=== PATIENT | male | born 2000 | race Two or more races ===

== ENCOUNTER 2020-11-23 22:59 | Emergency (ER) | payer MEDICAID, OTHER ==
[~2020-11-23] VITALS: Ht 170.2 cm; Wt 75.3 kg
[2020-11-23 23:53] LABS: Basophils # (auto) 0 10 ^3/uL (0-0.2); Eosinophils # (auto) 0 10 ^3/uL (0-0.8); Lymphocytes # (auto) 0.7 10 ^3/uL (0.4-5.4); Mean Corpuscular Hemoglobin 18.8 pg (28.0-32.0)
[2020-11-23 23:55] LABS: Basophils % (auto) 0.3 % (0.0-2.0); Eosinophils % (auto) 0.2 % (0.0-7.0); Hematocrit 43.3 % (41.0-53.0); Hemoglobin 14.1 g/dL (13.5-17.5); Lymphocytes % (auto) 5.8 % (10.0-50.0); Mean Corpuscular Hgb Conc. 32.6 g/dL (32.0-36.0); Mean Corpuscular Volume 57.7 fL (80.0-100.0); Monocytes # (auto) 0.8 10 ^3/uL (0-1.3); Monocytes % (auto) 6.1 % (0.0-12.0); Neutrophils # (auto) 10.9 10 ^3/uL (1.6-8.6); Neutrophils % (auto) 87.6 % (37.0-80.0); Nucleated Red Blood Cells % 0.4 %; Platelet Count (auto) 275 10^3/uL (140-450); Red Blood Cells 7.51 10^6/uL (4.5-5.90); Red Cell Distribution Width 16.6 % (11.8-14.3); White Blood Cell 12.5 10^3/uL (4.4-10.8)
[2020-11-24 00:14] LABS: Albumin 4.5 g/dL (3.4-5.0); Magnesium 1.7 mg/dL (1.6-2.6); Potassium 4.7 mmol/L (3.5-5.1)
[2020-11-24 00:16] LABS: Lactic Acid w/Reflex 2.6 mmol/L (0.4-2.0)
[2020-11-24 00:17] LABS: BUN/Creatinine Ratio 15.7; Bilirubin, Total 1.1 mg/dL (0.2-1.0)
[2020-11-24] MEDS: ONDANSETRON HCL 4 MG/2 ML VIAL ONE (00:18)
[2020-11-24] MEDS: ONDANSETRON HCL 4 MG/2 ML VIAL IV ONE (00:18)
[2020-11-24] MEDS: DICYCLOMINE HCL (10MG/ML) 2 ML AMPULE IM ONE (00:18)
[2020-11-24] MEDS: LACTATED RINGER'S 1,000 ML IV ONE (00:19)
[2020-11-24] MEDS: FAMOTIDINE (10MG/ML) 2ML VL IV ONE (00:19)
[2020-11-24] MEDS: IOHEXOL 350 MG/ML 100ML IJ ONE (00:24)
[2020-11-24 00:28] VITALS: BP 102/63
[2020-11-24] MEDS: METOCLOPRAMIDE HCL 5MG/ml INJ 2ml VIAL IV ONE (03:30)
== END 2020-11-24 02:52 | disposition home or self-care (01) ==
LOC: ER 22:59
DX: K52.9 Noninfective gastroenteritis and colitis, unspecified (principal); R11.2 Nausea with vomiting, unspecified
CPT/HCPCS: 36415; 74177; 80053; 83605; 83690; 83735; 85025; 96361; 96372; 96374; 96375; 99285; J0500; J2405; J3490; J7030; Q9967

== ENCOUNTER 2023-04-27 23:17 | Emergency (ER) | payer MEDICAID ==
[~2023-04-27] VITALS: Ht 170.2 cm; Wt 70.0 kg
[2023-04-27 23:48] LABS: Basophils # (auto) 0 10 ^3/uL (0-0.2); Basophils % (auto) 0.4 % (0.0-2.0); Eosinophils # (auto) 0.2 10 ^3/uL (0-0.8); Hemoglobin 12.8 g/dL (13.5-17.5); Monocytes # (auto) 0.7 10 ^3/uL (0-1.3); Nucleated Red Blood Cells % 0.1 %
[2023-04-27 23:49] LABS: Eosinophils % (auto) 2.1 % (0.0-7.0); Hematocrit 39.3 % (41.0-53.0); Lymphocytes # (auto) 2.2 10 ^3/uL (0.4-5.4); Lymphocytes % (auto) 21.3 % (10.0-50.0); Mean Corpuscular Hemoglobin 18.8 pg (28.0-32.0); Mean Corpuscular Hgb Conc. 32.6 g/dL (32.0-36.0); Mean Corpuscular Volume 57.6 fL (80.0-100.0); Monocytes % (auto) 7.2 % (0.0-12.0); Neutrophils # (auto) 7.1 10 ^3/uL (1.6-8.6); Red Blood Cells 6.83 10^6/uL (4.5-5.90); Red Cell Distribution Width 17.2 % (11.8-14.3); White Blood Cell 10.3 10^3/uL (4.4-10.8)
[2023-04-27 23:52] LABS: Albumin 4.5 g/dL (3.4-5.0); Calcium 9.8 mg/dL (8.5-10.1); Magnesium 2.3 mg/dL (1.6-2.6); Potassium 3.4 mmol/L (3.5-5.1)
[2023-04-27 23:57] LABS: Bilirubin, Total 0.5 mg/dL (0.2-1.0); Total Protein 7.3 g/dL (6.4-8.2)
[2023-04-28 00:03] LABS: INR 1.07 (0.9-1.15); Partial Thromboplastin Time 29.9 SEC (24.5-34.5)
[2023-04-28 02:56] VITALS: BP 120/74
== END 2023-04-28 03:00 | disposition home or self-care (01) ==
LOC: ER 23:17
DX: R00.2 Palpitations (principal); R07.9 Chest pain, unspecified; Z79.899 Other long term (current) drug therapy
CPT/HCPCS: 36415; 71045; 80053; 82550; 83735; 84484; 85025; 85610; 85730; 93005

== ENCOUNTER 2023-08-10 01:57 | Inpatient (IN) | payer MEDICAID ==
[~2023-08-10] VITALS: Ht 170.2 cm; Wt 69.0 kg
[2023-08-10 02:28] LABS: Basophils # (auto) 0 10 ^3/uL (0-0.2); Basophils % (auto) 0.1 % (0.0-2.0); Eosinophils # (auto) 0.2 10 ^3/uL (0-0.8); Eosinophils % (auto) 1.3 % (0.0-7.0); Hematocrit 43.8 % (41.0-53.0); Hemoglobin 14.1 g/dL (13.5-17.5); Lymphocytes # (auto) 2.1 10 ^3/uL (0.4-5.4); Mean Corpuscular Hemoglobin 18.6 pg (28.0-32.0); Mean Corpuscular Hgb Conc. 32.2 g/dL (32.0-36.0); Mean Corpuscular Volume 57.9 fL (80.0-100.0); Monocytes # (auto) 1.4 10 ^3/uL (0-1.3); Monocytes % (auto) 7.8 % (0.0-12.0); Neutrophils % (auto) 78.8 % (37.0-80.0); Nucleated Red Blood Cells % 0.2 %; Red Blood Cells 7.57 10^6/uL (4.5-5.90); White Blood Cell 17.7 10^3/uL (4.4-10.8)
[2023-08-10 02:42] LABS: Alanine Aminotransferase 26 U/L (7-40); Albumin 5.4 g/dL (3.2-4.8); Alkaline Phosphatase 76 U/L (46-116); Anion Gap 11 (5-15); Aspartate Aminotransferase 17 U/L (13-40); BUN/Creatinine Ratio 12.8 (10.0-20.0); Blood Urea Nitrogen 14 mg/dL (9-23); Calcium 10.2 mg/dL (8.7-10.4); Carbon Dioxide 25 mmol/L (20-30); Chloride 102 mmol/L (98-107); Glucose 116 mg/dL (74-106); Lipase 38 U/L (12-53); Potassium 3.5 mmol/L (3.5-5.1); Sodium 138 mmol/L (136-145)
[2023-08-10 02:43] LABS: Bilirubin, Total 0.9 mg/dL (0.2-1.0); Total Protein 8.2 g/dL (5.7-8.2)
[2023-08-10 02:58] LABS: Urine Bacteria FEW /hpf (None Seen); Urine Blood Negative /uL (Negative); Urine Clarity Clear (Clear); Urine Color Yellow (Yellow); Urine Mucus FEW (None Seen); Urine Protein, UAD TRACE (Negative); Urine Specific Gravity 1.029 (1.001-1.035); Urine Urobilinogen Normal (Negative); Urine WBC 5 /hpf (0 - 3); Urine pH 5.5 (5.0-8.0)
[2023-08-10 03:49] LABS: Platelet Estimate Adequate
[2023-08-10 03:50] LABS: Hypochromia Marked
[2023-08-10] MEDS ORDERED: ONDANSETRON HCL 4 MG/2 ML VIAL IV ONE (07:30)
[2023-08-10] MEDS ORDERED: SODIUM CHLORIDE 0.9% 1,000 ML IV ONE (07:30)
[2023-08-10] MEDS ORDERED: metroNIDAZOLE 500MG/100ML 100 ML IV ONE (08:15)
[2023-08-10 08:45] VITALS: PULSE 89; RESP 12; O2SAT 99
[2023-08-10] MEDS ORDERED: ACETAMINOPHEN 325 MG TAB PO PRN (09:15)
[2023-08-10] MEDS ORDERED: ONDANSETRON HCL 4 MG/2 ML VIAL IV PRN (09:15)
[2023-08-10] MEDS: SODIUM CHLORIDE 0.9% 1,000 ML IV SCH (09:15)
[2023-08-10 09:40] LABS: Triglycerides 91 mg/dL (< 150)
[2023-08-10 09:41] LABS: LDL Cholesterol 168 mg/dL (< 100)
[2023-08-10 09:42] LABS: Cholesterol 240 mg/dL (< 200); HDL Cholesterol 66 mg/dL (40-59)
[2023-08-10 10:45] LABS: Amphetamine Screen, Urine Neg (NEGATIVE); Barbiturate Scree,Urine Neg (NEGATIVE); Benzodiazephine Screen, Urine Neg (NEGATIVE)
[2023-08-10 10:46] LABS: Cannabinoid Screen, Urine Neg (NEGATIVE); Cocaine Screen, Urine Neg (NEGATIVE); Opiate Scree,Urine Neg (NEGATIVE); Phencyclidine Screen, Urine Neg (NEGATIVE)
[2023-08-10 23:00] VITALS: BP 112/56; PULSE 85; RESP 17; TEMP 99.5; O2SAT 97
[2023-08-10] MEDS ORDERED: DUTA1CAP29 PO (23:00)
[2023-08-11] MEDS: SODIUM CHLORIDE 0.9% 1,000 ML IV SCH (02:48)
[2023-08-11 05:00] VITALS: BP 105/54; PULSE 73; RESP 18; TEMP 98.4; O2SAT 98
[2023-08-11 07:30] VITALS: TEMP 36.9
[2023-08-11 08:46] VITALS: BP 95/42; PULSE 61; RESP 16; TEMP 97.4; O2SAT 98
[2023-08-11 10:38] LABS: Mean Corpuscular Volume 58.4 fL (80.0-100.0)
[2023-08-11 10:41] LABS: Hematocrit 38.8 % (41.0-53.0); Hemoglobin 12.5 g/dL (13.5-17.5); Mean Corpuscular Hemoglobin 18.8 pg (28.0-32.0); Mean Corpuscular Hgb Conc. 32.2 g/dL (32.0-36.0); Red Blood Cells 6.65 10^6/uL (4.5-5.90); Red Cell Distribution Width 17.3 % (11.8-14.3); White Blood Cell 4.6 10^3/uL (4.4-10.8)
[2023-08-11 11:04] LABS: Band Neutrophils % (manual) 0; Basophils % (manual) 0 (0.0-2.0); Blast Cells 0; Metamyelocytes % 0; Myelocytes % 0; Promyelocytes % 0; Reactive Lymphocytes 0
[2023-08-11 11:13] LABS: Alanine Aminotransferase 30 U/L (7-40); Albumin 4.1 g/dL (3.2-4.8); Alkaline Phosphatase 53 U/L (46-116); Anion Gap 4 (5-15); Aspartate Aminotransferase 20 U/L (13-40); BUN/Creatinine Ratio 8.1 (10.0-20.0); Blood Urea Nitrogen 8 mg/dL (9-23); Calcium 8.8 mg/dL (8.7-10.4); Carbon Dioxide 29 mmol/L (20-30); Chloride 106 mmol/L (98-107); Glucose 79 mg/dL (74-106); Lipase 32 U/L (12-53); Magnesium 1.9 mg/dL (1.6-2.6); Potassium 4.5 mmol/L (3.5-5.1); Sodium 139 mmol/L (136-145)
[2023-08-11 11:15] LABS: Bilirubin, Total 0.6 mg/dL (0.2-1.0); Total Protein 6.2 g/dL (5.7-8.2)
[2023-08-11 12:42] LABS: Eosinophils % (manual) 5 (0-7); Lymphocytes % (manual) 25 (10.0-50.0); Monocytes % (manual) 16 (0-12); Platelet Estimate Adequate; Toxic Granulation Slight
[2023-08-11 12:43] LABS: Hypochromia Marked
[2023-08-11 12:55] VITALS: BP 107/57; PULSE 56; RESP 18; TEMP 98.1; O2SAT 98
[2023-08-11 16:29] VITALS: TEMP 36.7
[2023-08-11 16:48] VITALS: BP 120/72; PULSE 56; RESP 18; TEMP 97.8; O2SAT 98
== END 2023-08-11 17:30 | disposition home or self-care (01) | DRG 249 ==
LOC: ER 01:57 → OVERFLOW 09:16 → WEST WING 21:08
PROVIDERS: ADMIT Internal Medicine; ATTEND Internal Medicine
DX: A08.4 Viral intestinal infection, unspecified (principal); E86.0 Dehydration; R11.2 Nausea with vomiting, unspecified
CPT/HCPCS: 36415; 71046; 74176; 80053; 80061; 80307; 81001; 83036; 83605; 83690; 83735; 84443; 85007; 85025; 85027; 87040; G0378; J2405; J3490

== ENCOUNTER 2025-04-06 22:15 | Emergency (ER) | payer MEDICAID ==
[~2025-04-06] VITALS: Ht 170.2 cm; Wt 68.0 kg
[2025-04-06 22:15] VITALS: BP 118/69; PULSE 57; RESP 16; TEMP 98.9; O2SAT 97
[~2025-04-06 22:15] MED LIST: DUTA1CAP29 PO
[2025-04-06] MEDS ORDERED: CEPH500C PO (23:00)
--- NOTE | 2025-04-06 23:01 | ED.PDOC ---
History of Present Illness HPI Comments 24-year-old male complaining of painful red bump on his inner right thigh. Patient states it started yesterday and continued today. Concerned for possible abscess. No history of abscess. States no fever no chills. Nothing makes it better, nothing makes it worse. Chief Complaint: Abscess Time Seen by MD: 22:21 Reviewed Notes: Nurses Notes Allergies: Coded Allergies: NO KNOWN ALLERGIES (Unverified , 11/23/20) Home Meds Reported Medications Dutasteride (Dutasteride) 0.5 Mg Cap, 0.5 MG PO EOD, CAP 08/10/23 Information Source: Patient Mode of Arrival: Ambulatory Past Medical History PAST MEDICAL HISTORY: Denies Surgical History: Denies all surgeries Family History Family History: Unknown Social History Smoker: Non-Smoker Alcohol: Denies ETOH Use Drugs: Denies Drug Use Lives In: Home Constitutional: denies: chills, diaphoresis, fatigue, fever, malaise, sweats, weakness, others EENTM: denies: blurred vision, double vision, ear bleeding, ear discharge, ear drainage, ear pain, ear ringing, eye pain, eye redness, hearing loss, mouth pain, mouth swelling, nasal discharge, nose bleeding, nose congestion, nose pain, photophobia, tearing, throat pain, throat swelling, voice changes, others Respiratory: denies: cough, hemoptysis, orthopnea, SOB at rest, shortness of breath, SOB with excertion, stridor, wheezing, others Cardiovascular: denies: chest pain, dizzy spells, diaphoresis, Dyspnea on exe rtion, edema, irregular heart beat, left arm pain, lightheadedness, palpitations, PND, syncope, others Gastrointestinal: denies: abdomen distended, abdominal pain, blood streaked bowels, constipated, diarrhea, dysphagia, difficulty swallowing, hematemesis, melena, nausea, poor appetite, poor fluid intake, rectal bleeding, rectal pain, vomiting, others Genitourinary: denies: burning, dysuria, flank pain, frequency, hematuria, incontinence, penile discharge, penile sore, pain, testicle pain, testicle swelling, urgency, others Neurological: denies: dizziness, fainting, headache, left sided numbness, left sided weakness, numbness, paresthesia, pre-existing deficit, right sided numbness, right sided weakness, seizure, speech problems, tingling, tremors, weakness, others Musculoskeletal: denies: back pain, gout, joint pain, joint swelling, muscle pain, muscle stiffness, neck pain, others Integumetry: denies: bruises, change in color, change in hair/nails, dryness, laceration, lesions, lumps, rash, wounds, others Allergic/Immunocompromised: denies: Difficulty Healing, Frequent Infections, Hives, Itching, others Hematologic/Lymphatic: denies: anemia, blood clots, easy bleeding, easy bruising, swollen glands, others Endocrine: denies: excessive hunger, excessive sweating, excessive thirst, excessive urination, flushing, intolerance to cold, intolerance to heat, unexplained weight gain, unexplained weight loss, others Physical Exam General Appearance: No Apparent Distress, Normal HEENT: Normal ENT Inspection, Pharynx Normal, TMs Normal Neck: Full Range of Motion, Non-Tender, Normal, Normal Inspection Respiratory: Chest Non-Tender, Lungs Clear, No Accessory Muscle Use, No Respiratory Distress, Normal Breath Sounds Cardiovascular: No Edema, No JVD, No Murmur, No Gallop, Normal Peripheral Pulses, Regular Rate/Rhythm Breast Exam: Deferred Gastrointestinal: No Organomegaly, Non Tender, No Pulsatile Mass, Normal Bowel Sounds, Soft Genitalia: Deferred Pelvic: Deferred Rectal: Deferred Extremities: No calf tenderness, Normal capillary refill, Normal inspection, Normal range of motion, Non-tender, No pedal edema Musculoskeletal : Apperance: Normal Neurologic: Alert, osteopathic neurologist II-XII nml as Tested, No Motor Deficits, Normal Affect, Normal Mood, No Sensory Deficits Cerebellar Function: Normal Reflexes: Normal Skin: Dry, Normal Color, Warm, Wounds (Erythemic wound noted on proximal right inner thigh. Approximate 1 cm round. It is erythemic.) Lymphatic: No Adenopathy Was a procedure done? Was a procedure done?: No Differential Dx Considerations may include: Abscess, cellulitis, X-Ray, Labs, Meds, VS Vital Signs Date Time Temp Pulse Resp B/P (MAP) Pulse Ox O2 Delivery O2 Flow Rate FiO2 04/06/25 22:15 98.9 57 16 118/69 (85) 97 98.9 X-Ray, Labs, Meds, VS Comment Imaging: X-rays and CT scans were reviewed and interpreted by this provider, angel ging shows no fractures and no pathological disease. Pending radiology review. Laboratory: Labs reviewed and interpreted by this provider. No significant abnormalities noted. Patient has prior medical visits reviewed. Med reconciliation performed Vital signs reviewed Time of 1ST Reevaluation: 23:00 Reevaluation 1ST: Improved Patient Education/Counseling: Diagnosis, Treatment, Need For Follow Up (Follow up with the PCP in the next 2-4 days. Return to the emergency department if symptoms worsen.) Family Education/Counseling: Diagnosis SEPSIS Sepsis Screen Date sepsis recognized/suspect: Apr 06, 2025 Time Sepsis recognized/suspect: 2222 Recent Procedure: No On Antibiotic Therapy: No Respiratory Rate >20: No Heart Rate >90: No Temp<36 C (96.8 F) or >38.3 C: No SBP <90 or MAP <65 mmHG: No New Acute Mental Status Change: No Is the patient on CPAP, BIPAP,: No Vital Signs Date Time Temp Pulse Resp B/P (MAP) Pulse Ox O2 Delivery O2 Flow Rate FiO2 04/06/25 22:15 98.9 57 16 118/69 (85) 97 98.9 Departure 1 Departure Time of Disposition: 23:00 Impression: Primary Impression: Cellulitis Qualified Codes: L03.115 - Cellulitis of right lower limb Disposition: HOME / SELF CARE / HOMELESS Condition: Fair e-Prescriptions Cephalexin Monohydrate (Cephalexin) 500 Mg Cap 1 CAP PO QID for 7 Days, #28 CAP Prov: CIERRA LLAMAS 04/06/25 Discharged With: Self Critical Care Note Critical Care Time?: No Stability Stability form required: No Heart Score Heart Score: Heart Score Response (Comments) Value History N/A 0 EKG N/A 0 Age N/A 0 Risk Factors N/A 0 Troponin N/A 0 Total 0 CIERRA LLAMAS Apr 06, 2025 23:00
== END 2025-04-07 00:30 | disposition home or self-care (01) ==
LOC: ER 22:15
DX: L03.115 Cellulitis of right lower limb (principal)